=== PATIENT | female | born 1985 | race African-American/Black ===

== ENCOUNTER 2017-04-22 22:26 | Emergency (ER) | payer MEDICAID ==
[~2017-04-22] VITALS: Ht 152.4 cm; Wt 85.6 kg
[~2017-04-22 22:26] MED LIST: BUPR-173 PO; HYDR-3240 PO
[2017-04-22] MEDS ORDERED: KETOROLAC 30 MG/1 ML ONE (23:24)
[2017-04-22] MEDS ORDERED: KETOROLAC 30 MG/1 ML IM ONE (23:30)
[2017-04-22 23:37] LABS: HCG UR OBC PASS
[2017-04-23 00:23] LABS: BLOOD UREA NITROGEN 9 mg/dL (7-18)
[2017-04-23 00:53] VITALS: BP 120/60
== END 2017-04-23 01:01 | disposition home or self-care (01) ==
LOC: ED 23:59
DX: R10.9 Unspecified abdominal pain (principal); S39.012A Strain of muscle, fascia and tendon of lower back, initial encounter; X58.XXXA Exposure to other specified factors, initial encounter; Y93.89 Activity, other specified; Y99.8 Other external cause status; Y92.89 Other specified places as the place of occurrence of the external cause
CPT/HCPCS: 36415; 71010; 76770; 80048; 81001; 81025; 82040; 85025; 85379; 87086; 96372; 99285; J1885

== ENCOUNTER 2017-06-24 15:14 | Emergency (ER) | payer MEDICAID ==
[~2017-06-24] VITALS: Ht 152.4 cm; Wt 86.8 kg
[2017-06-24 15:26] VITALS: BP 139/88
[2017-06-24] MEDS ORDERED: KETOROLAC 30 MG/1 ML IM ONE (16:00)
[2017-06-24] MEDS ORDERED: KETOROLAC 30 MG/1 ML ONE (16:01)
[2017-06-24 16:31] LABS: HCG UR OBC PASS
== END 2017-06-24 17:12 | disposition home or self-care (01) ==
LOC: ED 16:30
DX: N30.01 Acute cystitis with hematuria (principal); M54.5 Low back pain; M25.552 Pain in left hip
CPT/HCPCS: 72110; 73502; 81001; 81025; 87086; 96372; 99285; J1885

== ENCOUNTER 2017-08-18 01:39 | Emergency (ER) | payer SELFPAY ==
[~2017-08-18] VITALS: Ht 152.4 cm; Wt 85.0 kg
[2017-08-18] MEDS ORDERED: KETOROLAC 30 MG/1 ML ONE (02:27)
[2017-08-18] MEDS ORDERED: ACETAMINOPHEN 325 MG TABLET ONE (02:27)
[2017-08-18] MEDS ORDERED: ACETAMINOPHEN 325 MG TABLET PO ONE (02:30)
[2017-08-18] MEDS ORDERED: SODIUM CHLORIDE FLUSH 10ML SYR IVF ONE (02:30)
[2017-08-18] MEDS ORDERED: KETOROLAC 30 MG/1 ML IVPush ONE (02:30)
[2017-08-18] MEDS ORDERED: SODIUM CHLORIDE 0.9% 1,000ML IVBOLUS ONE ×2 (02:30→04:00)
[2017-08-18 02:32] LABS: HEMATOCRIT 37.5 % (34.6-47.8); HEMOGLOBIN 12.3 g/dL (11.7-16.4); WHITE BLOOD COUNT 16.4 x10^3/uL (3.4-10)
[2017-08-18 02:44] LABS: BLOOD UREA NITROGEN 6 mg/dL (7-18)
[2017-08-18 04:11] VITALS: BP 135/82
[2017-08-18 04:22] LABS: PATH.CAST-FLAG NOT PRESENT; SPERM-FLAG NOT PRESENT; SRC-FLAG NOT PRESENT; XTAL-FLAG NOT PRESENT; YLC-FLAG NOT PRESENT
== END 2017-08-18 05:15 | disposition home or self-care (01) ==
LOC: ED 02:08
DX: B34.9 Viral infection, unspecified (principal); Z87.891 Personal history of nicotine dependence; R00.2 Palpitations
CPT/HCPCS: 36415; 80048; 81001; 82040; 84145; 84703; 85025; 93005; 96374; 99285; J1885; J7030

== ENCOUNTER 2018-05-09 09:51 | Emergency (ER) | payer BC, OTHER ==
[~2018-05-09] VITALS: Ht 154.9 cm; Wt 88.8 kg
[2018-05-09 09:53] VITALS: BP 146/82
[2018-05-09] MEDS ORDERED: METHOCARBAMOL 750 MG TABLET PO ONE (10:30)
[2018-05-09] MEDS ORDERED: KETOROLAC 30 MG/1 ML IM ONE (10:30)
[2018-05-09] MEDS ORDERED: METHOCARBAMOL 750 MG TABLET ONE (10:32)
[2018-05-09] MEDS ORDERED: KETOROLAC 30 MG/1 ML ONE (10:32)
== END 2018-05-09 11:48 | disposition home or self-care (01) ==
LOC: ED 11:46
DX: S46.911A Strain of unspecified muscle, fascia and tendon at shoulder and upper arm level, right arm, initial encounter (principal); S29.012A Strain of muscle and tendon of back wall of thorax, initial encounter; S39.012A Strain of muscle, fascia and tendon of lower back, initial encounter; Z90.49 Acquired absence of other specified parts of digestive tract; X58.XXXA Exposure to other specified factors, initial encounter; Y93.89 Activity, other specified; Y99.8 Other external cause status; Y92.89 Other specified places as the place of occurrence of the external cause
CPT/HCPCS: 72072; 73030; 96372; 99284; J1885

== ENCOUNTER 2018-09-03 19:53 | Emergency (ER) | payer BC ==
[~2018-09-03] VITALS: Ht 154.9 cm; Wt 83.7 kg
[2018-09-03 20:54] LABS: RAPID INFLUENZA A Negative (Negative); RAPID INFLUENZA B Negative (Negative)
[2018-09-03] MEDS ORDERED: DEXAMETHASONE 4 MG TABLET ONE (21:29)
[2018-09-03] MEDS ORDERED: DEXAMETHASONE 4 MG TABLET PO ONE (21:30)
[2018-09-03 21:31] VITALS: BP 126/90
== END 2018-09-03 21:49 | disposition home or self-care (01) ==
LOC: ED 20:59
DX: J06.9 Acute upper respiratory infection, unspecified (principal); H66.001 Acute suppurative otitis media without spontaneous rupture of ear drum, right ear; Z90.49 Acquired absence of other specified parts of digestive tract
CPT/HCPCS: 71046; 87081; 87400; 87880; 99285

== ENCOUNTER 2020-08-03 14:27 | Emergency (ER) | payer SELFPAY ==
[~2020-08-03] VITALS: Ht 165.1 cm; Wt 95.0 kg
[2020-08-03 14:35] VITALS: BP 140/91
--- NOTE | 2020-08-03 15:36 | NUR ---
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
[2020-08-03] MEDS ORDERED: HYDROcodone/APAP 5/325 TABLET PO STA (16:02)
[2020-08-03] MEDS ORDERED: HYDROcodone/APAP 5/325 TABLET ONE (16:16)
[2020-08-03] MEDS ORDERED: KETOROLAC 30 MG/1 ML ONE (16:16)
[2020-08-03] MEDS ORDERED: KETOROLAC 30 MG/1 ML IM ONE (16:30)
== END 2020-08-03 16:56 | disposition home or self-care (01) ==
LOC: ED 16:15
DX: M13.142 Monoarthritis, not elsewhere classified, left hand (principal); M10.042 Idiopathic gout, left hand; Z98.51 Tubal ligation status; Z90.49 Acquired absence of other specified parts of digestive tract; Z87.891 Personal history of nicotine dependence
CPT/HCPCS: 29125; 73130; 96372; 99283; J1885

== ENCOUNTER 2020-08-22 13:57 | Emergency (ER) | payer MEDICAID ==
[~2020-08-22] VITALS: Ht 152.4 cm; Wt 98.3 kg
--- NOTE | 2020-08-22 14:46 | NUR ---
PT C/O LEFT KNEE PAIN SINCE SUNDAY. PT STATES SHE DID FALL THAT DAY BUT DOESN';T THINK SHE HURT IT IN THE FALL. PT DENIES ANY OTHER EPISODES OF TRAUMA. PT ABLE TO MOVE LEG, HOWEVER HAS PAIN WITH MOVEMENT.
--- NOTE | 2020-08-22 14:47 | NUR ---
PT OFF FLOOR TO XRAY
[2020-08-22 14:50] LABS: BASOPHILS % (AUTO) 1 % (0-1); EOSINOPHILS % (AUTO) 3 % (1-7); LYMPHOCYTES % (AUTO) 34 % (22-44); MEAN CORPUSCULAR HGB CONC 32.4 g/dL (32.4-35.8); MEAN PLATELET VOLUME 8.1 fL (7.4-10.4); MONOCYTES % (AUTO) 4 % (2-9); NEUTROPHILS % (AUTO) 58 % (42-75); PLATELET COUNT 333 x10^3/uL (130-400); RED BLOOD COUNT 4.41 x10^6/uL (3.82-5.3); RED CELL DISTRIBUTION WIDTH 15.7 % (9.6-15.2)
[2020-08-22 14:57] LABS: MD NO
[2020-08-22 14:59] LABS: ALBUMIN 3.8 g/dL (3.4-5.0); ANION GAP 6 mmol/L (5-15); C-REACTIVE PROTEIN, QUANT 0.37 mg/dL (0.02-0.49); CALCIUM 8.9 mg/dL (8.5-10.1); CHLORIDE 106 mmol/L (98-107); CREATININE 0.82 mg/dL (0.55-1.02)
--- NOTE | 2020-08-22 15:29 | NUR ---
PT RESTING IN ED [facility] ON CELL PHONE. AWAITING FURTHER ORDERS.
[2020-08-22 15:32] LABS: HCT (SEDRATE) 36.7 % (34.6-47.8)
[2020-08-22 15:33] VITALS: BP 113/83
[2020-08-22] MEDS ORDERED: KETOROLAC 30 MG/1 ML ONE (15:47)
--- NOTE | 2020-08-22 15:50 | NUR ---
PT MEDICATED PER MAR
[2020-08-22] MEDS ORDERED: KETOROLAC 30 MG/1 ML IM ONE (16:00)
--- NOTE | 2020-08-22 16:03 | NUR ---
PT REC'VD DISCHARGE INSTRUCTIONS AND EDUCATION. PT HAD NO FURTHER QUESTIONS.
== END 2020-08-22 16:36 | disposition home or self-care (01) ==
LOC: ED 15:52
DX: M06.9 Rheumatoid arthritis, unspecified (principal); M13.162 Monoarthritis, not elsewhere classified, left knee; R05 Cough
CPT/HCPCS: 36415; 73564; 80048; 82040; 84550; 85025; 85651; 86140; 96372; 99284; J1885

== ENCOUNTER 2020-10-03 14:02 | Emergency (ER) | payer MEDICAID, OTHER ==
[~2020-10-03] VITALS: Ht 154.9 cm; Wt 99.9 kg
[2020-10-03 14:13] VITALS: BP 121/76
[2020-10-03] MEDS ORDERED: MAALOX/HYOSCYAMINE/LIDOCAINE 45 ML BTL ONE (15:28)
[2020-10-03] MEDS ORDERED: MAALOX/HYOSCYAMINE/LIDOCAINE 45 ML BTL PO ONE (15:30)
--- NOTE | 2020-10-03 15:31 | NUR ---
BREAK RN: PT WENT TO XRAY. VS STABLE. NO ACUTE DISTRESS NOTED. WILL CONTINUE TO MONITOR WHILE PRIMARY RN IS ON BREAK.
[2020-10-03 15:38] LABS: BASOPHILS % (AUTO) 1 % (0-1); EOSINOPHILS % (AUTO) 0 % (1-7); LYMPHOCYTES % (AUTO) 26 % (22-44); MEAN CORPUSCULAR HEMOGLOBIN 26.9 pg (27.0-34.8); MEAN CORPUSCULAR HGB CONC 32.4 g/dL (32.4-35.8); MONOCYTES % (AUTO) 7 % (2-9); NEUTROPHILS % (AUTO) 65 % (42-75); PLATELET COUNT 360 x10^3/uL (130-400); RED CELL DISTRIBUTION WIDTH 16.4 % (9.6-15.2)
[2020-10-03 15:48] LABS: ALBUMIN 3.6 g/dL (3.4-5.0); ANION GAP 4 mmol/L (5-15); CALCIUM 8.8 mg/dL (8.5-10.1); CHLORIDE 102 mmol/L (98-107)
[2020-10-03 15:56] LABS: ALANINE AMINOTRANSFERASE 30 U/L (12-78); ALKALINE PHOSPHATASE 64 U/L (45-117); BILIRUBIN,TOTAL 0.4 mg/dL (0.2-1.0); CREATININE 0.74 mg/dL (0.55-1.02); TOTAL PROTEIN 7.8 g/dL (6.4-8.2)
--- NOTE | 2020-10-03 16:02 | NUR ---
REPORT GIVEN TO KARISHMA CHIU
[2020-10-03 16:24] LABS: MD SCAN
== END 2020-10-03 17:39 | disposition home or self-care (01) ==
LOC: ED 17:02
DX: R10.11 Right upper quadrant pain (principal); R10.13 Epigastric pain; R10.12 Left upper quadrant pain; R10.30 Lower abdominal pain, unspecified; G89.29 Other chronic pain; M19.90 Unspecified osteoarthritis, unspecified site; Z90.49 Acquired absence of other specified parts of digestive tract
CPT/HCPCS: 36415; 74021; 74176; 80053; 83690; 84703; 85025; 99285

== ENCOUNTER 2020-12-14 10:40 | Emergency (ER) | payer MEDICAID ==
[~2020-12-14] VITALS: Ht 154.9 cm; Wt 97.3 kg
[~2020-12-14 10:40] MED LIST changes: +HYDR-1067 PO; -HYDR-3240 PO
[2020-12-14] MEDS ORDERED: KETOROLAC 30 MG/1 ML IM ONE (11:00)
[2020-12-14] MEDS ORDERED: HYDROcodone/APAP 5/325 TABLET PO ONE (11:00)
--- NOTE | 2020-12-14 11:09 | NUR ---
PT C/O LEFT SHOULDER PAIN. PER PT, SHE GETS SURGERY ON IT NEXT WEEK FOR A LABRUM REPAIR, BUT THE PAIN HAS BEEN INCREASING. PT IS ALSO STATING THAT SHE HAS A COUGH AND CONGESTION X1 DAY. PT DENIES ANY FEVER, N/V/D, CHILLS OR SOB.
[2020-12-14] MEDS ORDERED: KETOROLAC 60 MG/2 ML ONE (11:12)
[2020-12-14] MEDS ORDERED: HYDROcodone/APAP 5/325 TABLET ONE (11:13)
[2020-12-14 11:18] VITALS: BP 127/78
--- NOTE | 2020-12-14 12:25 | NUR ---
DISCHARGE INSTUCTIONS REVIEWED WITH PATIENT. ALL QUESTONS ANSWERED AT THIS TIME.
== END 2020-12-14 12:28 | disposition home or self-care (01) ==
LOC: ED 12:10
DX: M25.512 Pain in left shoulder (principal); B34.9 Viral infection, unspecified; R05 Cough; R09.81 Nasal congestion; M19.90 Unspecified osteoarthritis, unspecified site
CPT/HCPCS: 71045; 96372; 99283; J1885

== ENCOUNTER 2021-04-20 23:29 | Emergency (ER) | payer OTHER ==
[~2021-04-20] VITALS: Ht 154.9 cm; Wt 80.0 kg
[~2021-04-20 23:29] MED LIST changes: -HYDR-1067 PO; +HYDR-2214 PO
[2021-04-20 23:32] VITALS: BP 115/80
--- NOTE | 2021-04-20 23:39 | NUR ---
Walks to room, nad waiting for erp evaluation.
--- NOTE | 2021-04-21 00:01 | NUR ---
Patient given discharge instructions and they have confirmed that they understand the instructions. Patient ambulatory with steady gait.
== END 2021-04-21 00:02 | disposition home or self-care (01) ==
LOC: ED 23:39
DX: H65.02 Acute serous otitis media, left ear (principal); B34.9 Viral infection, unspecified; Z90.49 Acquired absence of other specified parts of digestive tract
CPT/HCPCS: 99283

== ENCOUNTER 2021-05-06 05:26 | Inpatient (IN) | payer OTHER ==
[2021-05-03 13:27] LABS: BASOPHILS % (AUTO) 1 % (0-1); EOSINOPHILS % (AUTO) 3 % (1-7); LYMPHOCYTES % (AUTO) 31 % (22-44); MEAN CORPUSCULAR HEMOGLOBIN 26.9 pg (27.0-34.8); MEAN CORPUSCULAR HGB CONC 32.7 g/dL (32.4-35.8); MEAN PLATELET VOLUME 7.8 fL (7.4-10.4); MONOCYTES % (AUTO) 4 % (2-9); NEUTROPHILS % (AUTO) 61 % (42-75); PLATELET COUNT 357 x10^3/uL (130-400); RED BLOOD COUNT 4.44 x10^6/uL (3.82-5.3)
[2021-05-03 13:36] LABS: INTERNATIONAL NORMALIZED RATIO 0.94 (0.93-1.1); PROTHROMBIN TIME 10.1 Seconds (9.6-11.5)
[2021-05-03 13:37] LABS: ANION GAP 6 mmol/L (5-15); CALCIUM 8.7 mg/dL (8.5-10.1); CHLORIDE 107 mmol/L (98-107); CREATININE 0.62 mg/dL (0.55-1.02)
[2021-05-03 14:27] LABS: MICROSCOPIC INDICATED
[~2021-05-06] VITALS: Ht 154.9 cm; Wt 105.3 kg
[~2021-05-06 05:26] MED LIST changes: +METH10TA54 PO
[2021-05-06 06:19] VITALS: BP 135/90
[2021-05-06] MEDS ORDERED: GENTAMICIN 80 MG/2 ML ONE (06:27)
[2021-05-06] MEDS ORDERED: CEFAZOLIN 1,000 MG ONE ×2 (06:27→07:00)
[2021-05-06] MEDS ORDERED: CHLORHEXIDINE 15 ML UDC PO ONE (06:30)
[2021-05-06] MEDS ORDERED: LACTATED RINGERS 1,000 ML IV SCH (06:30)
[2021-05-06 06:33] LABS: HCG UR SG 1.025 (1.003-1.030)
[2021-05-06] MEDS ORDERED: MIDAZOLAM 1 MG/ML, 2ML ONE (06:48)
[2021-05-06] MEDS ORDERED: FENTANYL PF 250 MCG/5ML ONE (06:48)
[2021-05-06] MEDS ORDERED: PROPOFOL 50 ML ONE ×2 (06:53→07:48)
[2021-05-06] MEDS ORDERED: SUCCINYLCHOLINE 20 MG/ML, 10ML ONE (07:00)
[2021-05-06] MEDS ORDERED: ACETAMINOPHEN 325 MG TABLET PO PRN (07:00)
[2021-05-06] MEDS ORDERED: LABETALOL 5MG/ML, 20ML IV PRN ×2 (07:00→11:00)
[2021-05-06] MEDS ORDERED: METHOCARBAMOL 1,000 MG in DEXTROSE 5% 100 ML IV PRN (07:00)
[2021-05-06] MEDS ORDERED: PROMETHAZINE 25 MG/ML, 1ML IVPush PRN (07:00)
[2021-05-06] MEDS ORDERED: hydrALAzine 20 MG/ML, 1ML IV PRN (07:00)
[2021-05-06] MEDS ORDERED: ONDANSETRON 2MG/ML, 2ML ONE (07:00)
[2021-05-06] MEDS ORDERED: PROPOFOL 10 MG/ML, 20ML ONE (07:00)
[2021-05-06] MEDS ORDERED: DEXAMETHASONE 4 MG/ML, 1ML ONE (07:00)
[2021-05-06] MEDS ORDERED: EPHEDRINE 50 MG/ML, 1ML IVPush PRN (07:00)
[2021-05-06] MEDS ORDERED: ONDANSETRON 2MG/ML, 2ML IVPush PRN (07:00)
[2021-05-06] MEDS ORDERED: OXYcodone 5 MG/5 ML ORAL.SOL UDC PO PRN (07:00)
[2021-05-06] MEDS ORDERED: ROCURONIUM 10MG/ML,5ML ONE (07:28)
[2021-05-06] MEDS ORDERED: NEOSTIGMINE 1 MG/ML, 10ML ONE (07:43)
[2021-05-06] MEDS ORDERED: GLYCOPYRROLATE 0.2MG/1ML, 5ML ONE ×2 (07:43)
[2021-05-06] MEDS ORDERED: HYDROmorphone 1 MG/ML, 1ML INJ ONE (08:16)
[2021-05-06] MEDS ORDERED: FENTANYL PF 100 MCG/2ML ONE ×2 (08:54→09:20)
[2021-05-06] MEDS: FENTANYL PF 100 MCG/2ML IV PRN ×3 (08:58→09:22)
[2021-05-06] MEDS ORDERED: ACETAMINOPHEN 650 MG/20.3 ML UDC ONE (09:13)
[2021-05-06] MEDS ORDERED: OXYcodone 5 MG/5 ML ORAL.SOL UDC ONE (09:14)
[2021-05-06] MEDS ORDERED: MEPERIDINE/PF 25MG/0.5ML IVPush PRN (09:30)
[2021-05-06] MEDS ORDERED: HYDROmorphone 2 MG/ML, 1ML ONE (09:37)
[2021-05-06] MEDS: HYDROmorphone 1 MG/ML, 1ML INJ IVPush PRN ×2 (09:40→09:51)
[2021-05-06] MEDS ORDERED: PROMETHAZINE 25 MG/ML, 1ML IM PRN (11:00)
[2021-05-06] MEDS ORDERED: MAGNESIUM HYDROXIDE 8%, 30ML UDC PO PRN (11:00)
[2021-05-06] MEDS ORDERED: ONDANSETRON 2MG/ML, 2ML IV PRN (11:00)
[2021-05-06] MEDS ORDERED: BISACODYL 10 MG SUPP PR PRN (11:00)
[2021-05-06] MEDS ORDERED: HYDROmorphone 2 MG/ML, 1ML IVPush PRN (11:00)
[2021-05-06] MEDS ORDERED: DIPHENHYDRAMINE 25 MG CAPSULE PO PRN (11:00)
[2021-05-06] MEDS: D5%-0.9% NACL+KCL 20MEQ 1,000 ML IV SCH ×2 (11:00→21:00)
[2021-05-06 12:30] VITALS: BP 130/81
[2021-05-06] MEDS: OXYcodone IR 5MG TABLET PO PRN ×2 (12:56→21:06)
[2021-05-06] MEDS: CEFAZOLIN PMX 1GM/50ML 50 ML IVPB SCH (16:24)
[2021-05-06] MEDS: METHOCARBAMOL 750 MG in DEXTROSE 5% 100 ML IV SCH (18:04)
[2021-05-06 20:20] VITALS: BP 122/79
[2021-05-06] MEDS ORDERED: QUET100T4 PO (20:46)
[2021-05-06] MEDS ORDERED: QUETIAPINE 100MG TABLET ONE (20:57)
[2021-05-06] MEDS: QUETIAPINE 100MG TABLET PO SCH (21:06)
[2021-05-07] MEDS: CEFAZOLIN PMX 1GM/50ML 50 ML IVPB SCH (00:14)
[2021-05-07] MEDS: OXYcodone IR 5MG TABLET PO PRN ×5 (00:23→14:33)
[2021-05-07 00:25] VITALS: BP 133/95
[2021-05-07] MEDS: METHOCARBAMOL 750 MG in DEXTROSE 5% 100 ML IV SCH ×4 (02:15→15:30)
[2021-05-07 04:25] VITALS: BP 125/82
[2021-05-07] MEDS ORDERED: ENOXAPARIN 40 MG/0.4 ML SQ ONE (06:00)
[2021-05-07 06:09] LABS: ANION GAP 6 mmol/L (5-15); CALCIUM 9.8 mg/dL (8.5-10.1); CHLORIDE 106 mmol/L (98-107)
[2021-05-07 06:13] LABS: CREATININE 0.63 mg/dL (0.55-1.02)
[2021-05-07 06:32] LABS: BASOPHILS % (AUTO) 1 % (0-1); EOSINOPHILS % (AUTO) 0 % (1-7); LYMPHOCYTES % (AUTO) 14 % (22-44); MEAN CORPUSCULAR HEMOGLOBIN 26.8 pg (27.0-34.8); MEAN CORPUSCULAR HGB CONC 32.6 g/dL (32.4-35.8); MEAN PLATELET VOLUME 8.4 fL (7.4-10.4); MONOCYTES % (AUTO) 5 % (2-9); NEUTROPHILS % (AUTO) 81 % (42-75); PLATELET COUNT 352 x10^3/uL (130-400); RED BLOOD COUNT 4.37 x10^6/uL (3.82-5.3); RED CELL DISTRIBUTION WIDTH 15.6 % (9.6-15.2)
[2021-05-07] MEDS: HYDROcodone/APAP 10/325 MG TABLET PO PRN ×2 (06:35→20:43)
[2021-05-07] MEDS: D5%-0.9% NACL+KCL 20MEQ 1,000 ML IV SCH ×3 (06:35→21:46)
[2021-05-07 07:25] VITALS: BP 119/83
[2021-05-07] MEDS: SENNA/DOCUSATE TABLET PO SCH (07:31)
[2021-05-07 13:47] VITALS: BP 136/79
[2021-05-07] MEDS ORDERED: NICOTINE 21 MG/24 HR PATCH.TD24 ONE (16:35)
[2021-05-07] MEDS: NICOTINE 21 MG/24 HR PATCH.TD24 TD SCH (16:37)
[2021-05-07 19:32] VITALS: BP 117/77
[2021-05-07] MEDS: QUETIAPINE 100MG TABLET PO SCH (20:38)
[2021-05-08 00:09] VITALS: BP 125/85
[2021-05-08 05:00] LABS: BASOPHILS % (AUTO) 1 % (0-1); EOSINOPHILS % (AUTO) 1 % (1-7); LYMPHOCYTES % (AUTO) 33 % (22-44); MEAN CORPUSCULAR HEMOGLOBIN 27.3 pg (27.0-34.8); MEAN PLATELET VOLUME 8.3 fL (7.4-10.4); MONOCYTES % (AUTO) 7 % (2-9); NEUTROPHILS % (AUTO) 59 % (42-75); PLATELET COUNT 316 x10^3/uL (130-400); RED CELL DISTRIBUTION WIDTH 15.9 % (9.6-15.2)
[2021-05-08 05:14] LABS: ANION GAP 5 mmol/L (5-15); CALCIUM 8.4 mg/dL (8.5-10.1); CHLORIDE 108 mmol/L (98-107); CREATININE 0.57 mg/dL (0.55-1.02)
[2021-05-08] MEDS ORDERED: VANCOMYCIN 1,000 MG ONE (06:12)
[2021-05-08] MEDS ORDERED: BUPIVACAINE/PF 0.5% ONE (06:12)
[2021-05-08] MEDS ORDERED: EPINEPHRINE 1 MG/ML, 1ML ONE (06:12)
[2021-05-08] MEDS ORDERED: GENTAMICIN 80 MG/2 ML ONE (06:12)
[2021-05-08] MEDS ORDERED: MIDAZOLAM 1 MG/ML, 2ML ONE (06:52)
[2021-05-08] MEDS ORDERED: FENTANYL PF 250 MCG/5ML ONE (06:54)
[2021-05-08] MEDS ORDERED: PROPOFOL 50 ML ONE (06:59)
[2021-05-08] MEDS ORDERED: KETAMINE 50 MG/ML, 10ML ONE (07:02)
[2021-05-08] MEDS ORDERED: BUPIVACAINE/PF-EPI 0.25% 1:200K INFIL ONE (07:54)
[2021-05-08] MEDS ORDERED: VANCOMYCIN 1,000 MG IVPB ONE (07:54)
[2021-05-08] MEDS ORDERED: GENTAMICIN 80 MG/2 ML IV ONE (07:55)
[2021-05-08] MEDS: SENNA/DOCUSATE TABLET PO SCH (08:04)
[2021-05-08] MEDS ORDERED: LIDOCAINE-MPF 2% ,5ML ONE (08:19)
[2021-05-08] MEDS ORDERED: OXYcodone 5 MG/5 ML ORAL.SOL UDC ONE (09:17)
[2021-05-08] MEDS ORDERED: FENTANYL PF 100 MCG/2ML ONE (09:17)
[2021-05-08] MEDS ORDERED: SENNA/DOCUSATE TABLET PO PRN (09:30)
[2021-05-08] MEDS ORDERED: LABETALOL 5MG/ML, 20ML IV PRN (09:30)
[2021-05-08] MEDS ORDERED: OXYcodone 5 MG/5 ML ORAL.SOL UDC PO PRN (09:30)
[2021-05-08] MEDS ORDERED: PROMETHAZINE 25 MG/ML, 1ML IM PRN (09:30)
[2021-05-08] MEDS ORDERED: DIPHENHYDRAMINE 50 MG CAPSULE PO PRN (09:30)
[2021-05-08] MEDS ORDERED: METHOCARBAMOL 1,000 MG in DEXTROSE 5% 100 ML IV PRN (09:30)
[2021-05-08] MEDS ORDERED: ACETAMINOPHEN 325 MG TABLET PO PRN (09:30)
[2021-05-08] MEDS: MEPERIDINE/PF 25MG/0.5ML IVPush PRN ×2 (09:30→09:45)
[2021-05-08] MEDS ORDERED: MAGNESIUM HYDROXIDE 8%, 30ML UDC PO PRN (09:30)
[2021-05-08] MEDS ORDERED: LABETALOL 5MG/ML, 20ML IVPush PRN (09:30)
[2021-05-08] MEDS ORDERED: PROMETHAZINE 25 MG/ML, 1ML IVPush PRN (09:30)
[2021-05-08] MEDS ORDERED: FENTANYL PF 100 MCG/2ML IV PRN (09:30)
[2021-05-08] MEDS ORDERED: LORazepam 2 MG/ML, 1ML IVPush PRN (09:30)
[2021-05-08] MEDS ORDERED: ONDANSETRON 2MG/ML, 2ML IVPush PRN (09:30)
[2021-05-08] MEDS ORDERED: PHARMACY MAY ADJ FOR RENAL FX MC PRN (09:30)
[2021-05-08] MEDS ORDERED: PROMETHAZINE 25 MG/ML, 1ML ONE (09:37)
[2021-05-08] MEDS ORDERED: MEPERIDINE/PF 25MG/ML,1ML ONE (09:43)
[2021-05-08] MEDS: HYDROmorphone 1 MG/ML, 1ML INJ IVPush PRN ×5 (10:00→13:51)
[2021-05-08] MEDS ORDERED: HYDROmorphone 1 MG/ML, 1ML INJ ONE ×2 (10:05→10:21)
[2021-05-08] MEDS: D5%-0.9% NACL+KCL 20MEQ 1,000 ML IV SCH ×2 (11:49→22:52)
[2021-05-08] MEDS: CEFAZOLIN PMX 1GM/50ML 50 ML IVPB SCH ×2 (11:49→18:35)
[2021-05-08] MEDS: NS + 20MEQ KCL 1,000 ML IV SCH ×2 (11:49→23:50)
[2021-05-08 14:09] VITALS: BP 135/76
[2021-05-08] MEDS: OXYcodone IR 5MG TABLET PO PRN ×3 (15:38→22:29)
[2021-05-08] MEDS: NICOTINE 21 MG/24 HR PATCH.TD24 TD SCH (17:00)
[2021-05-08 18:29] VITALS: BP 131/81
[2021-05-08] MEDS: METHOCARBAMOL 750 MG TABLET PO SCH (18:36)
[2021-05-08] MEDS: SODIUM CHLORIDE FLUSH 10ML SYR IVF SCH (21:00)
[2021-05-08] MEDS: QUETIAPINE 100MG TABLET PO SCH (21:10)
[2021-05-08 23:53] VITALS: BP 103/68
[2021-05-09] MEDS: OXYcodone IR 5MG TABLET PO PRN ×2 (01:40→05:46)
[2021-05-09] MEDS: METHOCARBAMOL 750 MG TABLET PO SCH ×3 (02:17→19:11)
[2021-05-09 02:57] VITALS: BP 130/85
[2021-05-09 04:59] LABS: BASOPHILS % (AUTO) 0 % (0-1); EOSINOPHILS % (AUTO) 0 % (1-7); LYMPHOCYTES % (AUTO) 22 % (22-44); MEAN CORPUSCULAR HEMOGLOBIN 27.1 pg (27.0-34.8); MEAN CORPUSCULAR HGB CONC 33.1 g/dL (32.4-35.8); MEAN PLATELET VOLUME 8.2 fL (7.4-10.4); MONOCYTES % (AUTO) 8 % (2-9); NEUTROPHILS % (AUTO) 70 % (42-75); PLATELET COUNT 300 x10^3/uL (130-400); RED BLOOD COUNT 3.94 x10^6/uL (3.82-5.3); RED CELL DISTRIBUTION WIDTH 15.6 % (9.6-15.2)
[2021-05-09 05:04] LABS: ANION GAP 3 mmol/L (5-15); CALCIUM 8.6 mg/dL (8.5-10.1); CHLORIDE 104 mmol/L (98-107); CREATININE 0.64 mg/dL (0.55-1.02)
[2021-05-09] MEDS: ENOXAPARIN 40 MG/0.4 ML SQ SCH (05:48)
[2021-05-09] MEDS: SODIUM CHLORIDE FLUSH 10ML SYR IVF SCH ×2 (07:38→22:51)
[2021-05-09] MEDS: D5%-0.9% NACL+KCL 20MEQ 1,000 ML IV SCH ×2 (07:38→19:00)
[2021-05-09] MEDS: SENNA/DOCUSATE TABLET PO SCH (07:47)
[2021-05-09 08:15] VITALS: BP 129/85
[2021-05-09] MEDS: HYDROmorphone 1 MG/ML, 1ML INJ IVPush PRN (08:58)
[2021-05-09] MEDS ORDERED: KETOROLAC 30 MG/1 ML IV ONE (11:00)
[2021-05-09] MEDS: NS + 20MEQ KCL 1,000 ML IV SCH (11:32)
[2021-05-09] MEDS: OXYcodone/APAP 10/325MG TABLET PO PRN ×3 (11:32→20:44)
[2021-05-09 16:45] VITALS: BP 136/88
[2021-05-09] MEDS: KETOROLAC 30 MG/1 ML IV SCH ×2 (16:45→22:50)
[2021-05-09] MEDS: NICOTINE 21 MG/24 HR PATCH.TD24 TD SCH (16:45)
[2021-05-09 19:46] VITALS: BP 134/85
[2021-05-09] MEDS: QUETIAPINE 100MG TABLET PO SCH (20:44)
[2021-05-10 01:04] VITALS: BP 111/77
[2021-05-10] MEDS: OXYcodone/APAP 10/325MG TABLET PO PRN ×3 (01:31→10:12)
[2021-05-10] MEDS: NS + 20MEQ KCL 1,000 ML IV SCH (01:46)
[2021-05-10] MEDS: D5%-0.9% NACL+KCL 20MEQ 1,000 ML IV SCH (03:56)
[2021-05-10] MEDS: METHOCARBAMOL 750 MG TABLET PO SCH ×2 (03:59→12:42)
[2021-05-10] MEDS: KETOROLAC 30 MG/1 ML IV SCH (06:11)
[2021-05-10] MEDS: ENOXAPARIN 40 MG/0.4 ML SQ SCH (06:11)
[2021-05-10 06:35] VITALS: BP 113/74
[2021-05-10] MEDS: SENNA/DOCUSATE TABLET PO SCH (10:11)
[2021-05-10] MEDS: SODIUM CHLORIDE FLUSH 10ML SYR IVF SCH (10:13)
[2021-05-10] MEDS ORDERED: METH-640 PO (10:53)
[2021-05-10] MEDS ORDERED: OXYC-380 PO (10:53)
[2021-05-10 12:45] VITALS: BP 133/90
[2021-05-10] MEDS ORDERED: METHOCARBAMOL 750 MG TABLET PO SCH (17:30)
[2021-05-11] MEDS ORDERED: METHOTREXATE 2.5 MG TABLET PO SCH (09:00)
== END 2021-05-10 12:56 | disposition home or self-care (01) | DRG 453 ==
LOC: ORIP 05:26 → 4NE 10:10 → DCLOUNGE 05-10 12:45
PROVIDERS: ADMIT Neurological Surgery; ATTEND Neurological Surgery
PROC: 0SB40ZZ Excision of Lumbosacral Disc, Open Approach (ICD-10-PCS; 2021-05-06)
PROC: 00NY0ZZ Release Lumbar Spinal Cord, Open Approach (ICD-10-PCS; 2021-05-06)
PROC: 01NR0ZZ Release Sacral Nerve, Open Approach (ICD-10-PCS; 2021-05-06)
PROC: 4A11X4G Monitoring of Peripheral Nervous Electrical Activity, Intraoperative, External Approach (ICD-10-PCS; 2021-05-06)
PROC: 0SG30A0 Fusion of Lumbosacral Joint with Interbody Fusion Device, Anterior Approach, Anterior Column, Open Approach (ICD-10-PCS; principal; 2021-05-06 07:00)
PROC: 0SG3071 Fusion of Lumbosacral Joint with Autologous Tissue Substitute, Posterior Approach, Posterior Column, Open Approach (ICD-10-PCS; 2021-05-08)
PROC: 4A11X4G Monitoring of Peripheral Nervous Electrical Activity, Intraoperative, External Approach (ICD-10-PCS; 2021-05-08)
PROC: 8E0W0CZ Robotic Assisted Procedure of Trunk Region, Open Approach (ICD-10-PCS; 2021-05-08)
DX: M51.37 Other intervertebral disc degeneration, lumbosacral region (principal); E43 Unspecified severe protein-calorie malnutrition; Z68.41 Body mass index [BMI] 40.0-44.9, adult; M51.36 Other intervertebral disc degeneration, lumbar region; M48.061 Spinal stenosis, lumbar region without neurogenic claudication; Z20.822 Contact with and (suspected) exposure to COVID-19; E66.01 Morbid (severe) obesity due to excess calories; G89.4 Chronic pain syndrome; M19.90 Unspecified osteoarthritis, unspecified site; M43.06 Spondylolysis, lumbar region; Z90.49 Acquired absence of other specified parts of digestive tract; Z79.899 Other long term (current) drug therapy
CPT/HCPCS: 36415; 72100; 72110; 74018; J3490; S0020; 71046; 72131; 80048; 81001; 81025; 85025; 85610; 85730; 93005; 95938; 95941; C1713; C1729; C1776; G0378; J0171; J0690; J1100; J1170; J1650; J1885; J2175; J2250; J2405; J2550; J2704; J2710; J3010; J3370; J3480; U0005; C1763; J0330; J1580; J2800; U0003